=== PATIENT | female | born 1960 | race African-American/Black ===

== ENCOUNTER → 2020-01-31 15:29 | Outpatient (BNVA) | payer OTHER, SELFPAY | PROVIDERS: PCP Internal Medicine; Referring Provider Internal Medicine; Visit Provider Anesthesiology | DX: G89.4 Chronic pain syndrome (principal); M87.051 Idiopathic aseptic necrosis of right femur | CPT/HCPCS: 99213; Q3014 ==

== ENCOUNTER 2020-02-18 17:38 | Outpatient (REF) | payer OTHER, SELFPAY ==
--- NOTE | 2020-02-18 17:40 | MR_ITS ---
EXAMINATION: MR FEMUR WITHOUT CONTRAST, RIGHT CLINICAL INFORMATION: Pain. AVN. COMPARISON: Radiographs 01/23/2020 TECHNIQUE: MRI without contrast is performed on the proximal right femur. FINDINGS: There is chronic avascular necrosis of the superior femoral head with subchondral collapse resulting in flattening and articular surface incongruity most prominent anteriorly. The region of osteonecrosis measures approximately 3.1 x 2.7 cm with mild underlying bone marrow edema extending throughout the femoral head. There is cartilage loss along the superior femoral head and the anterior superior acetabulum. Small degenerative cysts of the anterior superior acetabular rim with osteophyte formation. No definite labral tear. Small osteophytes at the anterior and posterior femoral head and neck junction. There is a moderate joint effusion with mild diffuse synovitis. No muscle strain or tear. 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
== END 2020-02-18 17:39 | disposition home or self-care (01) ==
LOC: HO.MRI 17:38
PROVIDERS: PCP Internal Medicine; Visit Provider Anesthesiology
DX: M87.051 Idiopathic aseptic necrosis of right femur (principal)
CPT/HCPCS: 73718

== ENCOUNTER 2020-03-06 09:24 | Outpatient (REF) | payer OTHER, SELFPAY ==
--- NOTE | 2020-03-06 09:34 | XR_ITS ---
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 COMPARISON: X-rays of the right hip December 2019. MRI of the right hip January 2020. TECHNIQUE: AP view of the pelvis. FINDINGS: Right hip: Again noted is a geographic focus of lucency with this sclerotic margins in the apex of femoral head compatible with avascular necrosis. Slight flattening of the femoral head better appreciated on the prior x-ray the right hip. Joint space is normal. Remaining bones joints and soft tissues in the pelvis. No evidence of avascular necrosis in the left hip. XR/XR pelvis 1-2V IMPRESSION: Avascular necrosis of the right femoral head with slight subchondral collapse unchanged compared to prior x-rays and MRI.
== END 2020-03-06 09:25 | disposition home or self-care (01) ==
LOC: HO.HOSX 09:24
PROVIDERS: PCP Internal Medicine; Referring Provider Internal Medicine; Visit Provider Orthopaedic Surgery
DX: M87.051 Idiopathic aseptic necrosis of right femur (principal)
CPT/HCPCS: 72170; 99202

== ENCOUNTER → 2020-03-27 09:09 | Outpatient (BNVA) | payer OTHER, SELFPAY | PROVIDERS: PCP Internal Medicine; Visit Provider Orthopaedic Surgery | DX: Z76.89 Persons encountering health services in other specified circumstances (principal) ==

== ENCOUNTER 2020-07-15 07:41 | Outpatient (REF) | payer OTHER, SELFPAY ==
[2020-07-15 08:42] LABS: MANUAL DIFF FLAG NO
[2020-07-15 08:46] LABS: Basophils Percent Auto 0.4 % (0-2); Eosinophils Absolute Auto 0.1 X10*3/uL (0.0-0.4); Eosinophils Percent Auto 0.9 % (0-4); Hematocrit 37.4 % (37-47); Imm Gran Abs Auto 0.02 X10*3/uL (0.00-0.03); Imm Gran Pct Auto 0.2 % (0.0-0.4); Lymphocytes Percent Auto 35.3 % (20-40); Mean Corpuscular HGB Conc 32.1 g/dl (31.0-35.0); Mean Corpuscular Hemoglobin 29.1 pg (27.0-33.0); Mean Corpuscular Volume 90.6 fL (80-98); Mean Platelet Volume 10.2 fL (9.4-12.3); Monocytes Absolute Auto 0.6 X10*3/uL (0.1-1.2); Monocytes Percent Auto 7.3 % (2-11); Neutrophils Absolute Auto 4.8 X10*3/uL (2.0-8.3); Neutrophils Percent Auto 55.9 % (45-73); Platelet Count 359 X10*3/uL (160-400); Red Blood Count 4.13 X10*6/uL (4.20-5.50); Red Cell Distribution Width 12.7 % (11.0-16.0); White Blood Count 8.6 X10*3/uL (4.8-10.8)
[2020-07-15 09:22] LABS: Alanine Aminotransferase 11 U/L (0-31); Albumin Level 4.2 g/dL (3.5-5.0); Alkaline Phosphatase 63 U/L (39-117); Anion Gap 13 (12-20); Aspartate Amino Transferase 16 U/L (5-31); Blood Urea Nitrogen 21 mg/dL (9-16); Carbon Dioxide 24 mmol/L (22-29); Chloride 109 mmol/L (96-108); Cholesterol 216 mg/dL; Estimated Glomerular Filt Rate > 60; Glucose Fasting 81 mg/dL (60-99); HDL Cholesterol 62 mg/dL; LDL Cholesterol Calculated 135 mg/dl; Potassium 4.2 mmol/L (3.3-5.1); Sodium 142 mmol/L (135-145); Total Protein 7.1 g/dL (6.5-8.0); Triglycerides 96 mg/dL
[2020-07-15 09:37] LABS: TSH reflex Free T4 1.21 uIU/mL (0.32-4.0); Vitamin D 25-OH Total 46.3 ng/mL (>30)
== END 2020-07-15 07:42 | disposition home or self-care (01) ==
LOC: HO.LAB 07:41
PROVIDERS: Orthopaedic Surgery; PCP Internal Medicine; Visit Provider Internal Medicine
DX: Z01.812 Encounter for preprocedural laboratory examination (principal); F32.9 Major depressive disorder, single episode, unspecified; I10 Essential (primary) hypertension; M87.051 Idiopathic aseptic necrosis of right femur; Z78.0 Asymptomatic menopausal state
CPT/HCPCS: 36415; 80048; 80053; 80061; 82306; 84443; 85025

== ENCOUNTER → 2020-07-31 12:38 | Outpatient (BNVA) | payer OTHER, SELFPAY | PROVIDERS: PCP Internal Medicine; Visit Provider Physician Assistant | DX: M87.051 Idiopathic aseptic necrosis of right femur (principal) | CPT/HCPCS: 99212 ==

== ENCOUNTER 2020-08-05 07:53 | Inpatient (IN) | payer OTHER, SELFPAY ==
[2020-07-24 11:56] VITALS: BP 120/79; PULSE 92; RESP 20; O2SAT 98; BMI 27.5
--- NOTE | 2020-07-24 12:00 | P.CONAN_ITS ---
Documented by User: Georgina Mccainney 08/04/20 08:39 HPI - Anesthesia Eval Consult details Narrative: 60yo F for Right Hip Total Replacement PCP cleared at low risk PMFSH Active Problems Active Problems: All Active Problems (Updated 07/22/20 @ 13:21 by Tabitha Bee MD) Pre-operative examination (Acute) Menopause (Acute) HTN (hypertension) (Acute) Depression (Acute) History of colposcopy with cervical biopsy (Acute) ASCUS (atypical squamous cells of undetermined significance) on gynecologic Papanicolaou smear complicating , antepartum (Acute) Avascular necrosis of bone of right hip (Acute) Chronic pain syndrome (Acute) Avascular necrosis of bone of right hip (Acute) Past Medical History Medical History Arthritis ASCUS (atypical squamous cells of undetermined significance) on gynecologic Papanicolaou smear complicating , antepartum Avascular necrosis of bone of right hip Back pain Chronic pain syndrome Depression History of anxiety History of headache HTN (hypertension) Hx of Blancas's palsy Hx of osteopenia Menopause Pre-operative examination Family History Family History Maternal Aunt No problems noted. Maternal Grandmother Breast cancer Mother Colon cancer Family history of problems with anesthesia: No Surgical History Surgical History H/O colonoscopy History of colposcopy with cervical biopsy Hx of tubal ligation History of Problems with Anesthesia: No Social History Social History Are you a primary anesthesiologist and critical care to a significant other at home: No Do you presently have visiting nurse or other home services: No Alcohol intake: current Alcohol intake frequency: a few times a week Smoking Status: Former smoker Tobacco Type: Cigarette Years Smoked: 20 Smoking Quit Date: 2014 Use of substances other than those prescribed or required for medical reasons: Yes Substance Use Type: Marijuana Substance Use Type Other:: medical marijuana Substance Use Frequency: Weekly Have you been hit, kicked, punched, or otherwise hurt by someone within the past year? If so, by whom?: No Advance Directives Information Provided: No Recently lost weight without trying: No Current occupational status: employed Current occupation: senior receptionist, right-handed Narrative Narrative: No recent illness. Reports CP/SOB with anxiety attacks. [facility] ED w/u was negative for ACS. Activity limited to pain. Meds Allergies Allergy/AdvReac Type Severity Reaction Status Date / Time No Known Allergies Allergy Verified 07/22/20 13:00 Home Medications Medication Instructions Recorded Confirmed Last Taken Type hydrochlorothiazide 25 mg tablet 25 mg PO DAILY 02/22/20 07/24/20 Unknown History losartan 100 mg tablet 100 mg PO DAILY 02/22/20 07/24/20 Unknown History bupropion HCl 150 mg tablet,12 hr 150 mg PO BID 06/19/20 07/24/20 Unknown History sustained-release hydroxyzine HCl 25 mg tablet 25 mg PO QAM 06/19/20 07/24/20 Unknown History amlodipine 10 mg tablet 10 mg PO DAILY 07/22/20 07/24/20 Unknown History lorazepam 0.5 mg tablet 0.5 mg PO DAILY PRN 07/22/20 07/24/20 Unknown History Exam Exam Date and Time: July 24, 2020 1200 Pertinent Lab Results Pertinent Lab Results: Laboratory Tests 07/15/20 07/15/20 07:57 07:57 WBC 8.6 Hgb 12.0 Hct 37.4 Plt Count 359 Sodium 142 Potassium 4.2 Chloride 109 H Carbon Dioxide 24 BUN 21 H Creatinine 0.84 Lab Results 07/24/20 07/24/20 Range/Units 12:40 13:10 Nasal Screen MRSA (PCR) NEGATIVE (Negative) Nasal S. aureus Screen NEGATIVE (Negative) Nasal MRSA/S.aureus Interp SEE NOTE Blood Type O Positive Antibody Screen NEGATIVE Narrative Narrative: EKG 07/2020 Vent. Rate : 088 BPM Atrial Rate : 088 BPM P-R Int : 202 ms QRS Dur : 078 ms QT Int : 388 ms P-R-T Axes : 056 015 044 degrees QTc Int : 469 ms Normal sinus rhythm Possible Left atrial enlargement Borderline ECG No previous ECGs available Airway Mallampati Class: III TM Dist: >3cm Neck ROM: Full Loose/Missing/Broken Teeth: Yes (R lower molar crowned, 2 missing (32 and 22)) Heart: RRR Lungs: CTAB Assessment and Plan Assessment Anesthesia Assessment: Anesthesia Plan Discussed (GA vs Spinal, ? block) and Chart Reviewed Documented by User: Drew Retana MD 08/05/20 12:38 PMFSH Past Medical History Medical History Arthritis ASCUS (atypical squamous cells of undetermined significance) on gynecologic Papanicolaou smear complicating , antepartum Avascular necrosis of bone of right hip Back pain Chronic pain syndrome Depression History of anxiety History of headache HTN (hypertension) Hx of Blancas's palsy Hx of osteopenia Menopause Pre-operative examination Family History Family History Maternal Aunt No problems noted. Maternal Grandmother Breast cancer Mother Colon cancer Surgical History Surgical History H/O colonoscopy History of colposcopy with cervical biopsy Hx of tubal ligation Social History Social History Are you a primary anesthesiologist and critical care to a significant other at home: No Do you presently have visiting nurse or other home services: No Alcohol intake: current Alcohol intake frequency: a few times a week Smoking Status: Former smoker Tobacco Type: Cigarette Years Smoked: 20 Smoking Quit Date: 2014 Use of substances other than those prescribed or required for medical reasons: Yes Substance Use Type: Marijuana Substance Use Type Other:: medical marijuana Substance Use Frequency: Weekly Have you been hit, kicked, punched, or otherwise hurt by someone within the past year? If so, by whom?: No Advance Directives Information Provided: No Recently lost weight without trying: No Current occupational status: employed Current occupation: senior receptionist, right-handed Meds Allergies Allergy/AdvReac Type Severity Reaction Status Date / Time No Known Allergies Allergy Verified 07/22/20 13:00 Home Medications Medication Instructions Recorded Confirmed Last Taken Type hydrochlorothiazide 25 mg tablet 25 mg PO DAILY 02/22/20 07/24/20 Unknown History losartan 100 mg tablet 100 mg PO DAILY 02/22/20 07/24/20 Unknown History bupropion HCl 150 mg tablet,12 hr 150 mg PO BID 06/19/20 07/24/20 Unknown History sustained-release hydroxyzine HCl 25 mg tablet 25 mg PO QAM 06/19/20 07/24/20 Unknown History amlodipine 10 mg tablet 10 mg PO DAILY 07/22/20 07/24/20 Unknown History lorazepam 0.5 mg tablet 0.5 mg PO DAILY PRN 07/22/20 07/24/20 Unknown History Assessment and Plan Assessment Anesthesia Assessment: Anesthesia Plan Discussed and Chart Reviewed Final Anesthetic Review NPO: Yes ASA Class: III Final Preanesthetic Review: No Changes in Pt Med Stat, Meds/Allgs Chart Reviewed, Consent Obtained/Reviewed and Anes Risks/Benef Reviewed Patient Risk: Intermediate Procedure Risk: Intermediate Anesthetic Plan Anesthetic Plan: GA and Regional Block Disposition: Standard PACU Documented by User: Donna Smith 08/05/20 11:02 [facility] Past Medical History Medical History Arthritis ASCUS (atypical squamous cells of undetermined significance) on gynecologic Papanicolaou smear complicating , antepartum Avascular necrosis of bone of right hip Back pain Chronic pain syndrome Depression History of anxiety History of headache HTN (hypertension) Hx of Blancas's palsy Hx of osteopenia Menopause Pre-operative examination Family History Family History Maternal Aunt No problems noted. Maternal Grandmother Breast cancer Mother Colon cancer Surgical History Surgical History H/O colonoscopy History of colposcopy with cervical biopsy Hx of tubal ligation Social History Social History Are you a primary anesthesiologist and critical care to a significant other at home: No Do you presently have visiting nurse or other home services: No Alcohol intake: current Alcohol intake frequency: a few times a week Smoking Status: Former smoker Tobacco Type: Cigarette Years Smoked: 20 Smoking Quit Date: 2014 Use of substances other than those prescribed or required for medical reasons: Yes Substance Use Type: Marijuana Substance Use Type Other:: medical marijuana Substance Use Frequency: Weekly Have you been hit, kicked, punched, or otherwise hurt by someone within the past year? If so, by whom?: No Advance Directives Information Provided: No Recently lost weight without trying: No Current occupational status: employed Current occupation: senior receptionist, right-handed Meds Allergies Allergy/AdvReac Type Severity Reaction Status Date / Time No Known Allergies Allergy Verified 07/22/20 13:00 Home Medications Medication Instructions Recorded Confirmed Last Taken Type hydrochlorothiazide 25 mg tablet 25 mg PO DAILY 02/22/20 07/24/20 Unknown History losartan 100 mg tablet 100 mg PO DAILY 02/22/20 07/24/20 Unknown History bupropion HCl 150 mg tablet,12 hr 150 mg PO BID 06/19/20 07/24/20 Unknown History sustained-release hydroxyzine HCl 25 mg tablet 25 mg PO QAM 06/19/20 07/24/20 Unknown History amlodipine 10 mg tablet 10 mg PO DAILY 07/22/20 07/24/20 Unknown History lorazepam 0.5 mg tablet 0.5 mg PO DAILY PRN 07/22/20 07/24/20 Unknown History Exam Height,Weight and Vital Signs: Vital Signs Temp Pulse Resp BP Pulse Ox 08/05/20 08:10 97.2 F 84 18 133/91 H 98 Lab Results 07/24/20 07/24/20 08/05/20 Range/Units 12:40 13:10 07:59 Nasal Screen MRSA (PCR) NEGATIVE (Negative) Nasal S. aureus Screen NEGATIVE (Negative) Nasal MRSA/S.aureus Interp SEE NOTE COVID-19 (MICHELLE) Negative (Negative) COVID-19 Clin Com See Note Blood Type O Positive Antibody Screen NEGATIVE Airway Mallampati Class: II TM Dist: >3cm Neck ROM: Full Heart: RRR Lungs: CTAB Assessment and Plan Assessment Anesthesia Assessment: Anesthesia Plan Discussed and Chart Reviewed Final Anesthetic Review NPO: Yes ASA Class: II Final Preanesthetic Review: No Changes in Pt Med Stat, Meds/Allgs Chart Reviewed, Consent Obtained/Reviewed and Anes Risks/Benef Reviewed Patient Risk: Intermediate Procedure Risk: Intermediate Assessment/Block/Sedation in SS: Assess/Block/Sedation-SS Anesthetic Plan Anesthetic Plan: GA and Regional Block Disposition: Inp. Admit - Standard Bed
--- NOTE | 2020-07-24 13:10 | ECG_ITS ---
Test Reason : PREOP Blood Pressure : / mmHG Vent. Rate : 088 BPM Atrial Rate : 088 BPM P-R Int : 202 ms QRS Dur : 078 ms QT Int : 388 ms P-R-T Axes : 056 015 044 degrees QTc Int : 469 ms Normal sinus rhythm Possible Left atrial enlargement Borderline ECG No previous ECGs available Referred By: José Luis Noonan Electronically Signed By:TERESSA LIRIANO MD
[2020-07-24 15:05] LABS: MRSA Nasal PCR NEGATIVE (Negative); SA Nasal PCR NEGATIVE (Negative)
[2020-08-05] VITALS (15 sets, daily range): BP systolic 106–159; BP diastolic 64–92; PULSE 74–96; RESP 14–18; TEMP 36.2–36.6; O2SAT 85–100
--- NOTE | ~2020-08-05 | XR_ITS ---
EXAMINATION: XR PELVIS CLINICAL INFORMATION: Post right hip replacement COMPARISON: Previous pelvis x-ray February 2020 TECHNIQUE: AP view of the pelvis. FINDINGS: There is a new right hip replacement in satisfactory position. No fracture or dislocation is seen. Bones of the pelvis and left hip joint are normal. Soft tissues are unremarkable. XR/XR pelvis 1-2V IMPRESSION: Satisfactory appearance of right hip replacement.
[2020-08-05 08:42] LABS: COVID-19 Test Negative (Negative)
[2020-08-05] MEDS: oxyCODONE HCl ER 10 MG TAB.ER.12H PO ×2 (09:05→20:43)
[2020-08-05] MEDS: Gabapentin 600 MG TABLET PO (09:05)
[2020-08-05] MEDS: Lactated Ringers 1,000 ML 100 ML IVCONT (09:06)
--- NOTE | 2020-08-05 10:18 | MHC.SHP ---
Pre-Procedural Eval Section A The patient is an INPATIENT: No Changes since office visit: Yes Patient answered all questions; No Cold of Flu in the past 2 weeks, No New Medical Problems and No Changes in Medication The History & Physical has been completed within 30 days and I have reviewed it.: Yes Section B Chief Complaint: total Allergies: Allergies Allergy/AdvReac Type Severity Reaction Status Date / Time No Known Allergies Allergy Verified 07/22/20 13:00 Plan I have reviewed the history and physical and performed a pertinent physical examination on my patient. No changes have occurred unless specified.
--- NOTE | 2020-08-05 13:13 | PM.OP ---
Brief Operative Note Date of Service: 08/05/20 Pre-op diagnosis: right hip AVN Post-op diagnosis: same Procedure: Right ALEX Implants: Luly Trident2 48/38/ +0 MDM with 132deg #3 accolade 2 Surgeon: José Luis Noonan MD Anesthesia: GETA, regional and local Estimated blood loss (mL): 200 IV fluids (mL): 1,100 Pathology: other Condition: stable Disposition: PACU
--- NOTE | 2020-08-05 13:27 | P.OP_ITS ---
Operative Note Operative Note Date of Service: 08/05/20 Narrative: Pre-op diagnosis: right hip AVN Post-op diagnosis: same Procedure: Right ALEX Implants: [place] Trident2 48/38/26 +0 MDM with 132deg #3 accolade 2 Surgeon: José Luis Noonan MD Anesthesia: GETA, regional and local Estimated blood loss (mL): 200 IV fluids (mL): 1,100 Pathology: other Condition: stable Disposition: PACU Procedure in detail: Patient was brought into the operating room and placed in a right lateral decubitus position. All bony prominences were well padded and the limb was prepped and draped in standard sterile fashion. Time-out was called to identify proper site procedure proper surgeon IV antibiotics and 1 g of transaxemic acid was administered. I began by making a curvilinear incision over the posterolateral aspect of the greater trochanter. Dissection was taken down to the tensor fascia which was incised in line with the incision and a Charnley retractor was placed. Hip was internally rotated and the external rotators were identified. The vessels were cauterized and a full-thickness capsular/external rotator layer was developed starting just proximal to the piriformis. A dull Hohmann retractor was placed underneath the neck in the hip was dislocated. A neck cut was made 1 cm proximal to the lesser trochanter and the head and neck were removed and measured on the back table. There was a large area of necrotic osteocartiolagenous fragment in the superior head. Placed my anterior- posterior acetabular retractors and performed a labrectomy. I then sequentially reamed up to a size _47__ and impacted a _48 cup at approximately 45 degrees of inclination and 25 degrees of version. I then placed a temproary liner. I then removed my instrumentation and turned to the femur. I used cautery to identify the piriformis start site and used this as a starting point for my annamarieie cutter. I then used a Charnley awl to identify the canal and a curved curette to remove the lateral bone. I then sequentially broached in the patient's natural version to a size __3__and placed my trial implants. I took the hip through range of motion with a +0 head and I was satisfied with the length but elected to place an MDM liner given the thin poly of the 48 and some bordeline instability in adduction and IR > 50 deg. I therefore removed all instrumentation copiously irrigated placed my MDM liner and my #3 femur, 132 deg. I again took the hip through range of motion and was satisfied with the stability and length using a +0 head and so my final femoral head/MDM componenets were placed. I then irrigated for 3 minutes with iodine and placed 1 g of local TXA. I then performed a capsular closure with FiberWire, Bc's fascia with 0 Vicryl, subcuticular with 2-0 vicryl and skin with marcial. Patient was placed into a sterile dressing. Radiographs were obtained at the completion of the case and I was satisfied with the component position. Patient was extubated brought to the recovery room in stable condition.
[2020-08-05] MEDS: Ketorolac Tromethamine 15 MG/ML VIAL IVPUSH (14:04)
[2020-08-05] MEDS: hydrOXYzine HCL 25 MG TABLET PO (16:19)
[2020-08-05] MEDS: KCl 20 mEq in 5% Dex/0.45% Sod 20 MEQ/1,000 ML IV.SOLN 125 MEQ IVCONT (16:20)
[2020-08-05] MEDS: ceFAZolin Sodium/Dextrose,Iso 2 GM/50 ML PIGGYBACK IV (17:12)
--- NOTE | 2020-08-05 18:05 | P.CONIM_ITS ---
History of Present Illness Data of Consult Service Date: 08/05/20 Requesting physician: Tabitha Bee Primary Care Provider: Tabitha Bee MD [facility] Reason for consult: medical management 60 year female with with Avascular necrosis of right hip and underwent an elective hip replacment today. She is doing well post operatvely. Pain is controlled and has no other issues at this time. Other medical issues include HTN, depression, anxiety, Sciatica Review of Systems Review of Systems: Gen: no fever Resp: no sob, no cough CV: no chest, no BAILEY, no leg edema GI: No n/v, no abd pain Neuro: No confusion Yes all other systems are reviewed and are negative [facility] Medical History Arthritis ASCUS (atypical squamous cells of undetermined significance) on gynecologic Papanicolaou smear complicating , antepartum Avascular necrosis of bone of right hip Back pain Chronic pain syndrome Depression History of anxiety History of headache HTN (hypertension) Hx of Blancas's palsy Hx of osteopenia Menopause Pre-operative examination Family History Maternal Aunt No problems noted. Maternal Grandmother Breast cancer Mother Colon cancer Family history: reviewed and not pertinent Surgical History H/O colonoscopy History of colposcopy with cervical biopsy Hx of tubal ligation Social History Are you a primary senior resident care director to a significant other at home: No Do you presently have visiting nurse or other home services: No Alcohol intake: current Alcohol intake frequency: a few times a week Smoking Status: Former smoker Tobacco Type: Cigarette Years Smoked: 20 Smoking Quit Date: 2014 Use of substances other than those prescribed or required for medical reasons: Yes Substance Use Type: Marijuana Substance Use Type Other:: medical marijuana Substance Use Frequency: Weekly Currently Displaying Signs/Symptoms of Drug Intoxication Withdrawal: No Have you been hit, kicked, punched, or otherwise hurt by someone within the past year? If so, by whom?: No Advance Directives Information Provided: No Do you have thoughts of harming others: None Do you have a plan to hurt others: No Plan Recently lost weight without trying: No Current occupational status: employed Current occupation: repair technician, right-handed Meds Allergies Allergy/AdvReac Type Severity Reaction Status Date / Time No Known Allergies Allergy Verified 07/22/20 13:00 Active Medications: Current Medications Generic Name Dose Route Start Last Admin Trade Name Freq PRN Reason Stop Dose Admin Acetaminophen 650 mg 08/05/20 15:42 Acetaminophen 325 Mg Tablet PO Q6H PRN Pain, Mild (Pain Scale 1-3) Amlodipine Besylate 10 mg 08/06/20 09:00 Amlodipine Besylate 10 Mg Tablet PO DAILY COUNTS INCLUDE 234 BEDS AT THE [facility] Protocol Aspirin 325 mg 08/06/20 10:00 Aspirin 325 Mg Tablet PO BID COUNTS INCLUDE 234 BEDS AT THE [facility] Bupropion HCl 300 mg 08/06/20 09:00 Bupropion Hcl Xl 300 Mg Tab.Er.24h PO DAILY COUNTS INCLUDE 234 BEDS AT THE [facility] Celecoxib 200 mg 08/05/20 21:00 Celecoxib 200 Mg Capsule PO BID COUNTS INCLUDE 234 BEDS AT THE [facility] Docusate Sodium 100 mg 08/05/20 15:42 Docusate Sodium 100 Mg Capsule PO DAILY PRN Constipation Hydrochlorothiazide 25 mg 08/06/20 09:00 Hydrochlorothiazide 25 Mg Tablet PO DAILY COUNTS INCLUDE 234 BEDS AT THE [facility] Protocol Hydromorphone HCl 0.25 mg 08/05/20 15:42 Hydromorphone Hcl 0.5 Mg/0.5 Ml Syringe IVPUSH Q4H PRN Pain, Severe (Pain Scale 7-10) Hydroxyzine HCl 25 mg 08/05/20 15:42 08/05/20 16:19 Hydroxyzine Hcl 25 Mg Tablet PO 25 mg DAILY COLE Administration Potassium Chloride/Dextrose/Sod Cl 20 meq in 1,000 mls @ 125 mls/hr 08/05/20 15:42 08/05/20 16:20 IVCONT 125 mls/hr .Q8H COLE Administration Ketorolac Tromethamine 15 mg 08/05/20 18:17 Ketorolac Tromethamine 15 Mg/Ml Vial IVPUSH Q6H PRN Pain, Severe (Pain Scale 7-10) Lorazepam 0.5 mg 08/05/20 15:42 Lorazepam 0.5 Mg Tablet PO DAILY PRN Anxiety Losartan Potassium 100 mg 08/06/20 09:00 Losartan Potassium 50 Mg Tablet PO DAILY COUNTS INCLUDE 234 BEDS AT THE [facility] Protocol Magnesium Hydroxide 30 ml 08/05/20 15:42 Milk Of Magnesia 30 Ml Oral.Susp PO DAILY PRN Constipation Naloxone HCl 0.2 mg 08/05/20 15:42 Naloxone Hcl 0.4 Mg/Ml Vial IVPUSH Q2M PRN Excessive sedation or RR < 8 Ondansetron HCl 4 mg 08/05/20 15:42 Ondansetron Hcl 4 Mg/2 Ml Vial IVPUSH Q8H PRN Nausea and Vomiting Oxycodone HCl 5 mg 08/05/20 15:42 Oxycodone Hcl Immed Release 5 Mg Tablet PO Q4H PRN Pain, Moderate (Pain Scale 4-6 Oxycodone HCl 10 mg 08/05/20 21:00 Oxycodone Hcl Er 10 Mg Tab.Er.12h PO BID COLE Senna 17.2 mg 08/05/20 15:42 Sennosides 8.6 Mg Tablet PO BEDTIME PRN Constipation Sodium Chloride 3 ml 08/05/20 16:00 08/05/20 16:21 0.9 % Sodium Chloride Flush 3 Ml Syringe IVFLUSH Not Given QSHIFT COUNTS INCLUDE 234 BEDS AT THE [facility] Home Medications Medication Instructions Recorded Confirmed Last Taken Type hydrochlorothiazide 25 mg tablet 25 mg PO DAILY 02/22/20 07/24/20 Unknown History losartan 100 mg tablet 100 mg PO DAILY 02/22/20 07/24/20 Unknown History bupropion HCl 150 mg tablet,12 hr 150 mg PO BID 06/19/20 07/24/20 Unknown History sustained-release hydroxyzine HCl 25 mg tablet 25 mg PO QAM 06/19/20 07/24/20 Unknown History amlodipine 10 mg tablet 10 mg PO DAILY 07/22/20 07/24/20 Unknown History lorazepam 0.5 mg tablet 0.5 mg PO DAILY PRN 07/22/20 07/24/20 Unknown History Physical Exam Vital Signs and Narrative: Vital Signs: Last Vital Signs Temp 97.3 F 08/05/20 15:48 Pulse 82 08/05/20 15:48 Resp 15 08/05/20 15:48 BP 115/79 08/05/20 15:48 Pulse Ox 100 08/05/20 15:48 Body Mass Index 27.5 General: AO X 3, no acute distress Resp: CTA bilateral CVS: S1,S2,RRR GI: +BS, NT, no distention Skin: No rash, surgery site is dry clean and intact Neuro: motor grossly intact Psych: appropriate affect Results Labs Labs: Laboratory Results - last 24 hr 08/05/20 07:59 COVID-19 (MICHELLE) Negative COVID-19 Clin Com See Note Imaging Radiologist's Impressions: Impressions Pelvis X-Ray 08/05/20 11:42 IMPRESSION: Satisfactory appearance of right hip replacement. Assessment and Plan (1) HTN (hypertension): Qualifiers: Hypertension type: essential hypertension Qualified Code(s): I10 - Essential (primary) hypertension Status: Acute (2) Depression: Qualifiers: Depression Type: major depressive disorder Major depression recurrence: recurrent Active/Remission status: currently active Major depression episode severity: moderate Qualified Code(s): F33.1 - Major depressive disorder, recurrent, moderate Problem details: Sees therapist and psychiatrist at [facility] Status: Acute (3) Depression: Status: Acute 60/F with HNT, depression, anxiety who had hip replacement 08/05 d/t Avascular Necrosis Plan: Avascular Necrosis s/p hip replacment. Management by ortho HTN-BP is normal. Resume Norvasc, Losartan, and HCTZ tomorrow Anxiety Ativan, Atarax
[2020-08-05] MEDS: Celecoxib 200 MG CAPSULE PO (20:43)
[2020-08-05] MEDS: 0.9 % Sodium Chloride Flush 3 ML SYRINGE IVFLUSH (20:44)
[2020-08-06] VITALS (8 sets, daily range): BP systolic 100–135; BP diastolic 55–81; PULSE 85–97; RESP 16–20; TEMP 36.1–37; O2SAT 93–100
[2020-08-06] MEDS: HYDROmorphone HCl 0.5 MG/0.5 ML SYRINGE 0.25 MG IVPUSH ×2 (00:16→06:25)
[2020-08-06] MEDS: LORazepam 0.5 MG TABLET PO (00:17)
[2020-08-06] MEDS: Ketorolac Tromethamine 15 MG/ML VIAL IVPUSH ×3 (02:02→18:37)
[2020-08-06] MEDS: oxyCODONE HCl Immed Release 5 MG TABLET PO ×3 (02:03→13:32)
[2020-08-06] MEDS: Acetaminophen 325 MG TABLET 650 MG PO ×2 (02:03→13:31)
[2020-08-06] MEDS: KCl 20 mEq in 5% Dex/0.45% Sod 20 MEQ/1,000 ML IV.SOLN 125 MEQ IVCONT (05:30)
[2020-08-06 06:41] LABS: Hematocrit 29.7 % (37-47); Hemoglobin 9.6 g/dl (12.0-16.0)
--- NOTE | 2020-08-06 07:39 | P.PNOP_ITS ---
Subjective Subjective Date of Service: 08/06/20 Interval history: POD1 s/p right ALEX. Patient resting comfortably in bed. No overnight events. Pain is well managed. Physical Exam Vital Signs: Vital Signs: Last Vital Signs Temp 97.0 F 08/06/20 04:00 Pulse 90 08/06/20 04:00 Resp 16 08/06/20 04:00 BP 100/68 08/06/20 04:00 Pulse Ox 99 08/06/20 04:00 Body Mass Index 27.5 Const: General: cooperative, healthy appearing and no acute distress Resp: Effort & Inspection: normal respiratory effort and able to speak in complete sentences Cardio: Rate: regular rate Peripheral pulses: Peripheral pulses 2+ throughout GI: Palpation (GI): Soft to palpation Skin: Lesions: no lesions Rashes: no rashes Extrem: Other: Right hip no ecchymosis, redness, or drainage. Dressing is clean. dry, and intact. NVI Progress Note: A&P Assessment and plan (1) History of total right hip replacement: Status: Acute Assessment and Plan: Continue pain mgmnt Begin ASA for dvt ppx Continue PT for RT ALEX Dispo planning-Pending PT eval, pain mgmnt Fall Risk Details Current Medications: Current Medications Generic Name Dose Route Start Last Admin Trade Name Freq PRN Reason Stop Dose Admin Acetaminophen 650 mg 08/05/20 15:42 08/06/20 02:03 Acetaminophen 325 Mg Tablet PO 650 mg Q6H PRN Administration Pain, Mild (Pain Scale 1-3) Amlodipine Besylate 10 mg 08/06/20 09:00 Amlodipine Besylate 10 Mg Tablet PO DAILY FOR[facility]LY [facility], [facility]1983 Protocol Aspirin 325 mg 08/06/20 10:00 Aspirin 325 Mg Tablet PO BID COLE Bupropion HCl 300 mg 08/06/20 09:00 Bupropion Hcl Xl 300 Mg Tab.Er.24h PO DAILY COLE Celecoxib 200 mg 08/05/20 21:00 08/05/20 20:43 Celecoxib 200 Mg Capsule PO 200 mg BID COLE Administration Docusate Sodium 100 mg 08/05/20 15:42 Docusate Sodium 100 Mg Capsule PO DAILY PRN Constipation Hydrochlorothiazide 25 mg 08/06/20 09:00 Hydrochlorothiazide 25 Mg Tablet PO DAILY FOR[facility], [facility]1983 Protocol Hydromorphone HCl 0.25 mg 08/05/20 15:42 08/06/20 06:25 Hydromorphone Hcl 0.5 Mg/0.5 Ml Syringe IVPUSH 0.25 mg Q4H PRN Administration Pain, Severe (Pain Scale 7-10) Hydroxyzine HCl 25 mg 08/05/20 15:42 08/05/20 16:19 Hydroxyzine Hcl 25 Mg Tablet PO 25 mg DAILY COLE Administration Potassium Chloride/Dextrose/Sod Cl 20 meq in 1,000 mls @ 125 mls/hr 08/05/20 15:42 08/06/20 05:30 IVCONT 125 mls/hr .Q8H COLE Administration Ketorolac Tromethamine 15 mg 08/05/20 18:17 08/06/20 02:02 Ketorolac Tromethamine 15 Mg/Ml Vial IVPUSH 15 mg Q6H PRN Administration Pain, Severe (Pain Scale 7-10) Lorazepam 0.5 mg 08/05/20 15:42 08/06/20 00:17 Lorazepam 0.5 Mg Tablet PO 0.5 mg DAILY PRN Administration Anxiety Losartan Potassium 100 mg 08/06/20 09:00 Losartan Potassium 50 Mg Tablet PO DAILY FOR[facility] Protocol Magnesium Hydroxide 30 ml 08/05/20 15:42 Milk Of Magnesia 30 Ml Oral.Susp PO DAILY PRN Constipation Naloxone HCl 0.2 mg 08/05/20 15:42 Naloxone Hcl 0.4 Mg/Ml Vial IVPUSH Q2M PRN Excessive sedation or RR < 8 Ondansetron HCl 4 mg 08/05/20 15:42 Ondansetron Hcl 4 Mg/2 Ml Vial IVPUSH Q8H PRN Nausea and Vomiting Oxycodone HCl 5 mg 08/05/20 15:42 08/06/20 02:03 Oxycodone Hcl Immed Release 5 Mg Tablet PO 5 mg Q4H PRN Administration Pain, Moderate (Pain Scale 4-6 Oxycodone HCl 10 mg 08/05/20 21:00 08/05/20 20:43 Oxycodone Hcl Er 10 Mg Tab.Er.12h PO 10 mg BID COLE Administration Senna 17.2 mg 08/05/20 15:42 Sennosides 8.6 Mg Tablet PO BEDTIME PRN Constipation Sodium Chloride 3 ml 08/05/20 16:00 08/05/20 20:44 0.9 % Sodium Chloride Flush 3 Ml Syringe IVFLUSH 3 ml QSHIFT COLE Administration Time Spent With Patient Time: Total time spent is greater than 50% in coordination of care (as documented) at patient's floor/unit and/or counseling patient: Time with patient: less than 15 minutes
[2020-08-06] MEDS: amLODIPine Besylate 10 MG TABLET PO (08:47)
[2020-08-06] MEDS: Aspirin 325 MG TABLET PO ×2 (08:48→20:31)
[2020-08-06] MEDS: oxyCODONE HCl ER 10 MG TAB.ER.12H PO ×2 (08:48→20:32)
[2020-08-06] MEDS: hydrOXYzine HCL 25 MG TABLET PO (08:48)
[2020-08-06] MEDS: Losartan Potassium 50 MG TABLET 100 MG PO (08:49)
[2020-08-06] MEDS: buPROPion HCl XL 300 MG TAB.ER.24H PO (08:49)
[2020-08-06] MEDS: Celecoxib 200 MG CAPSULE PO ×2 (08:49→20:31)
[2020-08-06] MEDS: hydroCHLOROthiazide 25 MG TABLET PO (08:49)
--- NOTE | 2020-08-06 09:57 | P.PNIM_ITS ---
Subjective Subjective Date of Service: 08/06/20 Interval History: f/u med consult, s/p hip replacements for avascular necrosis. Pain is controlled. In sleep well due to disturbance from neighbor. Review of Systems Gen: no fever Resp: no sob, no cough CV: no chest, no BAILEY, no leg edema GI: No n/v, no abd pain Neuro: No confusion MSK: some hip pain Physical Exam Vital Signs: Vital Signs: Last Vital Signs Temp 97.5 F 08/06/20 07:38 Pulse 97 08/06/20 08:49 Resp 18 08/06/20 07:38 BP 135/81 08/06/20 08:49 Pulse Ox 96 08/06/20 07:38 Body Mass Index 27.5 General: AO X 3, no acute distress Resp: normal resp effort CVS: S1,S2,RRR GI: +BS, NT, no distention Skin: No rash Neuro: motor grossly intact Psych: appropriate affect Objective Data Current Medications Generic Name Dose Route Start Last Admin Trade Name Freq PRN Reason Stop Dose Admin Acetaminophen 650 mg 08/05/20 15:42 08/06/20 02:03 Acetaminophen 325 Mg Tablet PO 650 mg Q6H PRN Administration Pain, Mild (Pain Scale 1-3) Amlodipine Besylate 10 mg 08/06/20 09:00 08/06/20 08:47 Amlodipine Besylate 10 Mg Tablet PO 10 mg DAILY COLE Administration Protocol Aspirin 325 mg 08/06/20 10:00 08/06/20 08:48 Aspirin 325 Mg Tablet PO 325 mg BID COLE Administration Bupropion HCl 300 mg 08/06/20 09:00 08/06/20 08:49 Bupropion Hcl Xl 300 Mg Tab.Er.24h PO 300 mg DAILY COLE Administration Celecoxib 200 mg 08/05/20 21:00 08/06/20 08:49 Celecoxib 200 Mg Capsule PO 200 mg BID COLE Administration Docusate Sodium 100 mg 08/05/20 15:42 Docusate Sodium 100 Mg Capsule PO DAILY PRN Constipation Hydrochlorothiazide 25 mg 08/06/20 09:00 08/06/20 08:49 Hydrochlorothiazide 25 Mg Tablet PO 25 mg DAILY COLE Administration Protocol Hydromorphone HCl 0.25 mg 08/05/20 15:42 08/06/20 06:25 Hydromorphone Hcl 0.5 Mg/0.5 Ml Syringe IVPUSH 0.25 mg Q4H PRN Administration Pain, Severe (Pain Scale 7-10) Hydroxyzine HCl 25 mg 08/05/20 15:42 08/06/20 08:48 Hydroxyzine Hcl 25 Mg Tablet PO 25 mg DAILY COLE Administration Ketorolac Tromethamine 15 mg 08/05/20 18:17 08/06/20 02:02 Ketorolac Tromethamine 15 Mg/Ml Vial IVPUSH 15 mg Q6H PRN Administration Pain, Severe (Pain Scale 7-10) Lorazepam 0.5 mg 08/05/20 15:42 08/06/20 00:17 Lorazepam 0.5 Mg Tablet PO 0.5 mg DAILY PRN Administration Anxiety Losartan Potassium 100 mg 08/06/20 09:00 08/06/20 08:49 Losartan Potassium 50 Mg Tablet PO 100 mg DAILY COLE Administration Protocol Magnesium Hydroxide 30 ml 08/05/20 15:42 Milk Of Magnesia 30 Ml Oral.Susp PO DAILY PRN Constipation Naloxone HCl 0.2 mg 08/05/20 15:42 Naloxone Hcl 0.4 Mg/Ml Vial IVPUSH Q2M PRN Excessive sedation or RR < 8 Ondansetron HCl 4 mg 08/05/20 15:42 Ondansetron Hcl 4 Mg/2 Ml Vial IVPUSH Q8H PRN Nausea and Vomiting Oxycodone HCl 5 mg 08/05/20 15:42 08/06/20 08:49 Oxycodone Hcl Immed Release 5 Mg Tablet PO 5 mg Q4H PRN Administration Pain, Moderate (Pain Scale 4-6 Oxycodone HCl 10 mg 08/05/20 21:00 08/06/20 08:48 Oxycodone Hcl Er 10 Mg Tab.Er.12h PO 10 mg BID COLE Administration Senna 17.2 mg 08/05/20 15:42 Sennosides 8.6 Mg Tablet PO BEDTIME PRN Constipation Sodium Chloride 3 ml 08/05/20 16:00 08/06/20 07:49 0.9 % Sodium Chloride Flush 3 Ml Syringe IVFLUSH Not Given QSHIFT [facility] Labs CBC & Chem 7: 08/06/20 06:04 Assessment and Plan (1) HTN (hypertension): Status: Acute (2) Depression: Problem details: Sees therapist and psychiatrist at [facility] Status: Acute Assessment and Plan: 60/F with HNT, depression, anxiety who had hip replacement 08/05 d/t Avascular Necrosis Plan: Avascular Necrosis s/p hip replacment. management by ortho, PT HTN-BP is normal. Continue Norvasc, Losartan, and HCTZ Anxiety Ativan, Atarax Anemia--Keep eye on it, no indication for transfusion at this time
--- NOTE | 2020-08-06 10:00 | MHC.CM.PN ---
Addendum entered by Karla Ennis 08/06/20 10:30: Additional Information- Pt reports having recent anxiety and depression. She sees a therapist 2x weekly and is followed by a [facility] in the community. Offered pt services while at [facility], she denied the need. Original Note: This group underwriter meet with patient. A&O, able to answer questions appropriately. IMM provided and reviewed with pt. Pt lives with daughter who will provide transportation @ [place]. Physical Therapy recommending home w/ services. VNA agencies provided to pt, will follow-up this afternoon for choices. CM will continue to monitor.
[2020-08-06] MEDS: 0.9 % Sodium Chloride Flush 3 ML SYRINGE IVFLUSH ×2 (14:40→20:34)
--- NOTE | 2020-08-06 15:15 | HO.POSTANES ---
Post Anesthesia Evaluation Post Anesthesia Evaluation Vital Signs: Vital Signs Temp Pulse Resp BP Pulse Ox 08/06/20 11:21 98.6 F 90 17 104/56 L 97 08/06/20 08:49 97 135/81 08/06/20 08:47 97 133/81 08/06/20 07:38 97.5 F 85 18 106/64 96 08/06/20 04:00 97.0 F 90 16 100/68 99 Anesthesia: Nerve Block and General Mental Status: Awake Pain Control: Satisfactory Nausea/Vomiting: None Hydration: Adequate Anesthesia-Related Issues: No Anes. Related Issues
[2020-08-07] VITALS: BP 96/67; PULSE 95; RESP 16; TEMP 37.2; O2SAT 96
[2020-08-07] MEDS: HYDROmorphone HCl 0.5 MG/0.5 ML SYRINGE 0.25 MG IVPUSH ×2 (01:55→06:49)
[2020-08-07 03:26] VITALS: BP 99/59; PULSE 88; RESP 16; TEMP 36.2; O2SAT 100
[2020-08-07 08:00] VITALS: BP 142/83; PULSE 112; RESP 18; TEMP 36.1; O2SAT 98
[2020-08-07 08:18] LABS: MANUAL DIFF FLAG NO
--- NOTE | 2020-08-07 08:25 | P.PNOP_ITS ---
Subjective Subjective Date of Service: 08/07/20 Interval history: POD2 s/p right ALEX with Dr. Noonan. Tiffani is up walking with P.T. in the hallway this morning. She states that her pain is well managed. No additional complaints. Physical Exam Vital Signs: Vital Signs: Last Vital Signs Temp 97.0 F 08/07/20 08:00 Pulse 112 H 08/07/20 08:00 Resp 18 08/07/20 08:00 BP 142/83 H 08/07/20 08:00 Pulse Ox 98 08/07/20 08:00 Body Mass Index 27.5 Const: General: cooperative, healthy appearing and no acute distress Resp: Effort & Inspection: normal respiratory effort and able to speak in complete sentences Cardio: Rate: regular rate Peripheral pulses: Peripheral pulses 2+ throughout GI: Palpation (GI): Soft to palpation Skin: Lesions: no lesions Rashes: no rashes Extrem: Other: Right hip no ecchymosis, redness, or drainage. Aquacel is clean , dry, and intact. NVI. Progress Note: A&P Assessment and plan (1) History of total right hip replacement: Status: Acute Assessment and Plan: Continue pain mgmnt Continue ASA for dvt ppx Continue PT for right ALEX Dispo planning-Pending PT eval, pain mgmnt Fall Risk Details Current Medications: Current Medications Generic Name Dose Route Start Last Admin Trade Name Freq PRN Reason Stop Dose Admin Acetaminophen 650 mg 08/05/20 15:42 08/06/20 13:31 Acetaminophen 325 Mg Tablet PO 650 mg Q6H PRN Administration Pain, Mild (Pain Scale 1-3) Amlodipine Besylate 10 mg 08/06/20 09:00 08/06/20 08:47 Amlodipine Besylate 10 Mg Tablet PO 10 mg DAILY COLE Administration Protocol Aspirin 325 mg 08/06/20 10:00 08/06/20 20:31 Aspirin 325 Mg Tablet PO 325 mg BID COLE Administration Bupropion HCl 300 mg 08/06/20 09:00 08/06/20 08:49 Bupropion Hcl Xl 300 Mg Tab.Er.24h PO 300 mg DAILY COLE Administration Celecoxib 200 mg 08/05/20 21:00 08/06/20 20:31 Celecoxib 200 Mg Capsule PO 200 mg BID COLE Administration Docusate Sodium 100 mg 08/05/20 15:42 Docusate Sodium 100 Mg Capsule PO DAILY PRN Constipation Hydrochlorothiazide 25 mg 08/06/20 09:00 08/06/20 08:49 Hydrochlorothiazide 25 Mg Tablet PO 25 mg DAILY COLE Administration Protocol Hydromorphone HCl 0.25 mg 08/05/20 15:42 08/07/20 06:49 Hydromorphone Hcl 0.5 Mg/0.5 Ml Syringe IVPUSH 0.25 mg Q4H PRN Administration Pain, Severe (Pain Scale 7-10) Hydroxyzine HCl 25 mg 08/05/20 15:42 08/06/20 08:48 Hydroxyzine Hcl 25 Mg Tablet PO 25 mg DAILY COLE Administration Ketorolac Tromethamine 15 mg 08/05/20 18:17 08/06/20 18:37 Ketorolac Tromethamine 15 Mg/Ml Vial IVPUSH 15 mg Q6H PRN Administration Pain, Severe (Pain Scale 7-10) Lorazepam 0.5 mg 08/05/20 15:42 08/06/20 00:17 Lorazepam 0.5 Mg Tablet PO 0.5 mg DAILY PRN Administration Anxiety Losartan Potassium 100 mg 08/06/20 09:00 08/06/20 08:49 Losartan Potassium 50 Mg Tablet PO 100 mg DAILY COLE Administration Protocol Magnesium Hydroxide 30 ml 08/05/20 15:42 Milk Of Magnesia 30 Ml Oral.Susp PO DAILY PRN Constipation Naloxone HCl 0.2 mg 08/05/20 15:42 Naloxone Hcl 0.4 Mg/Ml Vial IVPUSH Q2M PRN Excessive sedation or RR < 8 Ondansetron HCl 4 mg 08/05/20 15:42 Ondansetron Hcl 4 Mg/2 Ml Vial IVPUSH Q8H PRN Nausea and Vomiting Oxycodone HCl 5 mg 08/05/20 15:42 08/06/20 13:32 Oxycodone Hcl Immed Release 5 Mg Tablet PO 5 mg Q4H PRN Administration Pain, Moderate (Pain Scale 4-6 Oxycodone HCl 10 mg 08/05/20 21:00 08/06/20 20:32 Oxycodone Hcl Er 10 Mg Tab.Er.12h PO 10 mg BID COLE Administration Senna 17.2 mg 08/05/20 15:42 Sennosides 8.6 Mg Tablet PO BEDTIME PRN Constipation Sodium Chloride 3 ml 08/05/20 16:00 08/06/20 20:34 0.9 % Sodium Chloride Flush 3 Ml Syringe IVFLUSH 3 ml QSHIFT COLE Administration Time Spent With Patient Time: Total time spent is greater than 50% in coordination of care (as documented) at patient's floor/unit and/or counseling patient: Time with patient: less than 15 minutes
[2020-08-07 08:33] LABS: Basophils Percent Auto 0.3 % (0-2); Eosinophils Absolute Auto 0.2 X10*3/uL (0.0-0.4); Eosinophils Percent Auto 1.4 % (0-4); Hematocrit 30.7 % (37-47); Hemoglobin 9.8 g/dl (12.0-16.0); Imm Gran Abs Auto 0.04 X10*3/uL (0.00-0.03); Imm Gran Pct Auto 0.3 % (0.0-0.4); Lymphocytes Absolute Auto 3.8 X10*3/uL (1.2-4.9); Lymphocytes Percent Auto 27.2 % (20-40); Mean Corpuscular HGB Conc 31.9 g/dl (31.0-35.0); Mean Corpuscular Hemoglobin 29.3 pg (27.0-33.0); Mean Corpuscular Volume 91.9 fL (80-98); Monocytes Absolute Auto 1.2 X10*3/uL (0.1-1.2); Monocytes Percent Auto 8.4 % (2-11); Neutrophils Absolute Auto 8.7 X10*3/uL (2.0-8.3); Neutrophils Percent Auto 62.4 % (45-73); Platelet Count 298 X10*3/uL (160-400); Red Blood Count 3.34 X10*6/uL (4.20-5.50); Red Cell Distribution Width 13.2 % (11.0-16.0); White Blood Count 13.9 X10*3/uL (4.8-10.8)
[2020-08-07 08:50] LABS: Anion Gap 13 (12-20); Blood Urea Nitrogen 13 mg/dL (9-16); Calcium 8.9 mg/dL (8.4-10.2); Carbon Dioxide 26 mmol/L (22-29); Chloride 102 mmol/L (96-108); Creatinine Clr Calc Pharmacy 80.9; Estimated Glomerular Filt Rate > 60; Glucose Random 96 mg/dL (60-115); Potassium 3.9 mmol/L (3.3-5.1); Sodium 137 mmol/L (135-145)
--- NOTE | 2020-08-07 08:59 | P.DS_ITS ---
DS: Providers Provider Date of Service: 08/07/20 Date of admission: 08/05/20 07:53 Primary care physician: Tabitha Bee MD Consults: 08/05/20 15:42 Consult to Hospitalist Routine Consulting Provider: Hospitalist Reason For Exam: post ALEX. Blood pressure management DS: Diagnosis Discharge Diagnosis (1) History of total right hip replacement: Status: Acute Problem details: Ms. Santo is a 60 yo female who presented to the office with ongoing right hip pain. She was found to have OA of the right hip and had failed all conservative treatment. She continued to have difficulty with ambulation and daily activities; therefore she consented to move forward with Right total hip arthroplasty. DS: Medications Discharge Medications Home Medications: Home Medications Medication Instructions Recorded Confirmed hydrochlorothiazide 25 mg tablet 25 mg PO DAILY 02/22/20 07/24/20 losartan 100 mg tablet 100 mg PO DAILY 02/22/20 07/24/20 bupropion HCl 150 mg tablet,12 hr 150 mg PO BID 06/19/20 07/24/20 sustained-release hydroxyzine HCl 25 mg tablet 25 mg PO QAM 06/19/20 07/24/20 amlodipine 10 mg tablet 10 mg PO DAILY 07/22/20 07/24/20 lorazepam 0.5 mg tablet 0.5 mg PO DAILY PRN 07/22/20 07/24/20 Previous Rx's Medication Instructions Recorded lidocaine 5 % topical patch 1 patch TOPICAL DAILY #30 ea 06/19/20 walker #1 ea 08/06/20 acetaminophen 650 mg PO Q6H PRN 30 Days #60 tab 08/07/20 aspirin 325 mg PO BID 42 Days #84 tab 08/07/20 celecoxib 200 mg PO BID 30 Days #60 cap 08/07/20 docusate sodium 100 mg PO BID PRN 30 Days cap 08/07/20 oxycodone 5 mg PO Q4H PRN 7 Days #42 tab 08/07/20 DS: Summary Hospital Course Hospital Course: The patient underwent a successful right total hip arthroplasty, they were transferred to PACU and then to the floor to recover. During their stay, their vitals were stable, afebrile at 97.1. Labs were unremarkable, H/H 9.8/30.7. POD 1 they were started on Aspirin 325mg po bid for DVT ppx, they also received Physical Therapy services twice a day. Prior to discharge, their dressing was changed, incision clean dry and intact, Aquacel dressing applied and the plan was to be discharged home with VNA services. Time Spent with Patient Time attestation: Total time spent providing and/or coordinating discharge services: Discharge coordination time: Less than 30 minutes Physical Exam Vital Signs: Vital Signs: Last Vital Signs Temp 97.0 F 08/07/20 08:00 Pulse 112 H 08/07/20 08:00 Resp 18 08/07/20 08:00 BP 142/83 H 08/07/20 08:00 Pulse Ox 98 08/07/20 08:00 Body Mass Index 27.5 Const: General: cooperative, healthy appearing and no acute distress Resp: Effort & Inspection: normal respiratory effort and able to speak in complete sentences Cardio: Rate: regular rate Peripheral pulses: Peripheral pulses 2+ throughout GI: Palpation (GI): Soft to palpation Skin: Lesions: no lesions Rashes: no rashes Extrem: Other: Right hip no ecchymosis, redness, or drainage. Aquacel dressing is clean dry and intact. NVI. DS: Data Data Completed and Pending Pending studies at discharge: Pending at discharge 08/05/20 12:45 Surgical [PTH] Routine Labs on day of discharge: Laboratory Results - last 24 hr 08/07/20 08/07/20 07:53 07:53 WBC 13.9 H RBC 3.34 L Hgb 9.8 L Hct 30.7 L MCV 91.9 MCH 29.3 MCHC 31.9 RDW 13.2 Plt Count 298 MPV 10.0 Immature Gran % (Auto) 0.3 Neut % (Auto) 62.4 Lymph % (Auto) 27.2 Letcher % (Auto) 8.4 Eos % (Auto) 1.4 Baso % (Auto) 0.3 Lymph # (Auto) 3.8 Letcher # (Auto) 1.2 Eos # (Auto) 0.2 Baso # (Auto) 0.0 Abs Immat Gran (auto) 0.04 H Absolute Neuts (auto) 8.7 H Absolute Nucleated RBC 0.000 Nucleated RBC % (auto) 0.0 Sodium 137 Potassium 3.9 Chloride 102 Carbon Dioxide 26 Anion Gap 13 BUN 13 Creatinine 0.74 Estim Creat Clear Calc 80.9 Estimated GFR > 60 Random Glucose 96 Calcium 8.9 Discharge Plan Discharge Patient Disposition: Home Health Service Discharge Diagnosis: s/p right ALEX Referrals: Sly MOHAN [Outside] - 1 Day (CUSTODIAL AND HOME PHYSICAL THERAPY PLEASE CALL ABOVE NUMBER IF YOU HAVE NOT HEARD FROM NA BY ELVIS ON 08/08/20) José Luis Noonan MD [Physician] - 1 Week Deon Wolf PA-C [Physician Animal Rehabilitator] - 2 Weeks (08/21/20 at 2:15pm) Discharge Medications: New acetaminophen 325 mg Tablet 650 mg PO Q6H PRN (Reason: Pain, Mild (Pain Scale 1-3)) 30 Days Qty: 60 RF: 0 celecoxib 200 mg Capsule 200 mg PO BID 30 Days Qty: 60 RF: 0 aspirin 325 mg Tablet 325 mg PO BID 42 Days Qty: 84 RF: 0 docusate sodium 100 mg Capsule 100 mg PO BID PRN (Reason: Constipation) 30 Days RF: 0 oxycodone 5 mg Tablet 5 mg PO Q4H PRN (Reason: Pain, Moderate (Pain Scale 4-6) 7 Days Qty: 42 RF: 0 Continued (DME) walker Misc See Rx Instructions .MEDSUPPLY Qty: 1 RF: 0 losartan 100 mg tablet 100 mg PO DAILY RF: 0 hydrochlorothiazide 25 mg tablet 25 mg PO DAILY RF: 0 bupropion HCl 150 mg tablet sustained-release 12 hr 150 mg PO BID RF: 0 hydroxyzine HCl 25 mg tablet 25 mg PO QAM RF: 0 lidocaine 5 % adhesive patch,medicated 1 patch topical DAILY Qty: 30 RF: 0 lorazepam 0.5 mg tablet 0.5 mg PO DAILY PRN (Reason: Anxiety) RF: 0 amlodipine 10 mg tablet 10 mg PO DAILY RF: 0 Discontinued aspirin 81 mg tablet,delayed release (DR/EC) 81 mg PO DAILY Qty: 90 RF: 1 Discharge Orders: Discharge Order (Routine); Ordered 08/07/20 Ordered By: Ellen Lincoln Diet: regular diet Activity on Discharge: Use cane or walker Stand Alone Forms: Patient Portal Discharge page Care Plan Goals: restroe fxn to right hip Health Concerns: None Plan of Treatment: Physical Therapy for total hip arthroplasty: posterior precautions, gait training, ROM, strength Limit stair climbing No showering, no tub bath-keep dressing clean, dry and intact No driving x6 weeks Continue Lovenox tabs once a day x [address] [facility] Orthopedics in 2 weeks Assessment: Physical Therapy for total hip arthroplasty: posterior precautions, gait training, ROM, strength Limit stair climbing No showering, no tub bath-keep dressing clean, dry and intact No driving x6 weeks Continue Lovenox tabs once a day x [address] [facility] Orthopedics in 2 weeks
--- NOTE | 2020-08-07 09:11 | P.F2F_ITS ---
Service Date Service Date: 08/07/20 Encounter Date of encounter: 08/07/20 Encounter: Pt. is considered homebound due to recent surgery. Unable to drive, poor balance, poor gait mechanics. Reasons for Services Reason for physical therapy: home safety and mobility, therapeutic exercises, restore joint function, gait/transfer training and ADL training Reason for occupational therapy: home safety and mobility, therapeutic exercises, restore joint function, gait/transfer training and ADL training Homebound: Leaving the home is medically contraindicated at this time without the asist of a device and/or another person due th the listed conditions above and below. Reason homebound: unsteady gait / fall risk, leg weakness, pain with ambulation, pain with transfers, poor balance / fall risk and unable to drive Homebound supporting statement: Pt. is considered homebound due to recent surgery. Unable to drive, poor balance, poor gait mechanics. Certification: Based on the above findings, I certify that this patient is confined to the home and needs intermittent senior care care, physical therapy and/or speech therapy, or continues to need occupational therapy. The patient is under my care, and I have initiated the establishment of the plan of care. The patient will be followed by a physician who will periodically review the plan of care.
[2020-08-07] MEDS: 0.9 % Sodium Chloride Flush 3 ML SYRINGE IVFLUSH (09:13)
[2020-08-07] MEDS: Aspirin 325 MG TABLET PO (09:13)
[2020-08-07 09:14] VITALS: BP 142/83; PULSE 112
[2020-08-07] MEDS: hydrOXYzine HCL 25 MG TABLET PO (09:14)
[2020-08-07] MEDS: oxyCODONE HCl ER 10 MG TAB.ER.12H PO (09:14)
[2020-08-07] MEDS: amLODIPine Besylate 10 MG TABLET PO (09:14)
[2020-08-07] MEDS: buPROPion HCl XL 300 MG TAB.ER.24H PO (09:14)
[2020-08-07] MEDS: Celecoxib 200 MG CAPSULE PO (09:14)
[2020-08-07] MEDS: Losartan Potassium 50 MG TABLET 100 MG PO (09:14)
[2020-08-07] MEDS: hydroCHLOROthiazide 25 MG TABLET PO (09:14)
--- NOTE | 2020-08-07 10:14 | HO.PM.IMPN ---
Subjective Subjective Date of Service: 08/07/20 Interval History: f/u med consult, s/p hip replacements for avascular necrosis. Pain is controlled. happy to be going home Review of Systems Gen: no fever Resp: no sob, no cough CV: no chest, no BAILEY, no leg edema GI: No n/v, no abd pain Neuro: No confusion MSK: some hip pain Physical Exam Vital Signs: Vital Signs: Last Vital Signs Temp 97.0 F 08/07/20 08:00 Pulse 112 H 08/07/20 09:14 Resp 18 08/07/20 08:00 BP 142/83 H 08/07/20 09:14 Pulse Ox 98 08/07/20 08:00 Body Mass Index 27.5 General: AO X 3, no acute distress Resp: normal speech, no distress GI: no distention, Skin: No rash, no wound issues Neuro: motor grossly intact Psych: appropriate affect Objective Data Current Medications Generic Name Dose Route Start Last Admin Trade Name Freq PRN Reason Stop Dose Admin Acetaminophen 650 mg 08/05/20 15:42 08/06/20 13:31 Acetaminophen 325 Mg Tablet PO 650 mg Q6H PRN Administration Pain, Mild (Pain Scale 1-3) Amlodipine Besylate 10 mg 08/06/20 09:00 08/07/20 09:14 Amlodipine Besylate 10 Mg Tablet PO 10 mg DAILY COLE Administration Protocol Aspirin 325 mg 08/06/20 10:00 08/07/20 09:13 Aspirin 325 Mg Tablet PO 325 mg BID COLE Administration Bupropion HCl 300 mg 08/06/20 09:00 08/07/20 09:14 Bupropion Hcl Xl 300 Mg Tab.Er.24h PO 300 mg DAILY COLE Administration Celecoxib 200 mg 08/05/20 21:00 08/07/20 09:14 Celecoxib 200 Mg Capsule PO 200 mg BID COLE Administration Docusate Sodium 100 mg 08/05/20 15:42 Docusate Sodium 100 Mg Capsule PO DAILY PRN Constipation Hydrochlorothiazide 25 mg 08/06/20 09:00 08/07/20 09:14 Hydrochlorothiazide 25 Mg Tablet PO 25 mg DAILY COLE Administration Protocol Hydromorphone HCl 0.25 mg 08/05/20 15:42 08/07/20 06:49 Hydromorphone Hcl 0.5 Mg/0.5 Ml Syringe IVPUSH 0.25 mg Q4H PRN Administration Pain, Severe (Pain Scale 7-10) Hydroxyzine HCl 25 mg 08/05/20 15:42 08/07/20 09:14 Hydroxyzine Hcl 25 Mg Tablet PO 25 mg DAILY COLE Administration Ketorolac Tromethamine 15 mg 08/05/20 18:17 08/06/20 18:37 Ketorolac Tromethamine 15 Mg/Ml Vial IVPUSH 15 mg Q6H PRN Administration Pain, Severe (Pain Scale 7-10) Lorazepam 0.5 mg 08/05/20 15:42 08/06/20 00:17 Lorazepam 0.5 Mg Tablet PO 0.5 mg DAILY PRN Administration Anxiety Losartan Potassium 100 mg 08/06/20 09:00 08/07/20 09:14 Losartan Potassium 50 Mg Tablet PO 100 mg DAILY COLE Administration Protocol Magnesium Hydroxide 30 ml 08/05/20 15:42 Milk Of Magnesia 30 Ml Oral.Susp PO DAILY PRN Constipation Naloxone HCl 0.2 mg 08/05/20 15:42 Naloxone Hcl 0.4 Mg/Ml Vial IVPUSH Q2M PRN Excessive sedation or RR < 8 Ondansetron HCl 4 mg 08/05/20 15:42 Ondansetron Hcl 4 Mg/2 Ml Vial IVPUSH Q8H PRN Nausea and Vomiting Oxycodone HCl 5 mg 08/05/20 15:42 08/06/20 13:32 Oxycodone Hcl Immed Release 5 Mg Tablet PO 5 mg Q4H PRN Administration Pain, Moderate (Pain Scale 4-6 Oxycodone HCl 10 mg 08/05/20 21:00 08/07/20 09:14 Oxycodone Hcl Er 10 Mg Tab.Er.12h PO 10 mg BID COLE Administration Senna 17.2 mg 08/05/20 15:42 Sennosides 8.6 Mg Tablet PO BEDTIME PRN Constipation Sodium Chloride 3 ml 08/05/20 16:00 08/07/20 09:13 0.9 % Sodium Chloride Flush 3 Ml Syringe IVFLUSH 3 ml QSHIFT COLE Administration Labs CBC & Chem 7: 08/07/20 07:53 08/07/20 07:53 Assessment and Plan (1) HTN (hypertension): Status: Acute (2) Depression: Problem details: Sees therapist and psychiatrist at [facility] Status: Acute Assessment and Plan: 60/F with HNT, depression, anxiety who had hip replacement 08/05 d/t Avascular Necrosis Plan: Avascular Necrosis s/p hip replacment. management by ortho, PT HTN-BP is normal. Continue Norvasc, Losartan, and HCTZ Anxiety Ativan, Atarax Anemia--stable medically ok to discharge
--- NOTE | 2020-08-07 11:27 | MHC.CM.PN ---
PT DISCHARGING HOME TODAY W/[facility] FOR [facility] AND HOME PT, DAUGHTER TO TRANSPORT.
== END 2020-08-07 11:20 | disposition home health service (06) | DRG 470 ==
LOC: HO.SSSA 08:55 → HO.S3 13:38
PROVIDERS: Physician Assistant; Admitting Provider Orthopaedic Surgery; PCP Internal Medicine; Visit Provider Orthopaedic Surgery
PROC: 0SR90JA Replacement of Right Hip Joint with Synthetic Substitute, Uncemented, Open Approach (ICD-10-PCS; CPT 27130; principal; 2020-08-05 09:40)
DX: M87.9 Osteonecrosis, unspecified (principal); F33.1 Major depressive disorder, recurrent, moderate; D64.9 Anemia, unspecified; I10 Essential (primary) hypertension; F41.9 Anxiety disorder, unspecified; Z20.822 Contact with and (suspected) exposure to COVID-19; Z79.899 Other long term (current) drug therapy
CPT/HCPCS: 36415; 72170; 80048; 85014; 85018; 85025; 86850; 86900; 87635; 87640; 87641; 88304; 88307; 88311; 93005; 97110; 97116; 97161; 97165; 97530; C1776; J0131; J0690; J1170; J1885; J2250; J2405; J3010

== ENCOUNTER → 2020-08-21 14:11 | Outpatient (BNVA) | payer OTHER, SELFPAY | PROVIDERS: PCP Internal Medicine; Visit Provider Physician Assistant | DX: Z47.1 Aftercare following joint replacement surgery (principal); Z96.641 Presence of right artificial hip joint | CPT/HCPCS: 99212 ==

== ENCOUNTER 2020-09-03 10:00 | Outpatient (RCR) | payer OTHER, SELFPAY ==
--- NOTE | 2020-08-22 16:00 | MHC.PT.EP ---
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 IN [facility] X 2 DAYS THEN HOME PT UNTIL RECENTLY, NOW REFERRED FOR OUTPt PT. PRESENTS WITH ANTALGIC GT WITH ST CANE, PAIN R HIP WITH SWELLING NOTED. SHOULD BENEFIT FROM PT TO HELP INCREASE OVERALL FUNCTIONAL MOBILITY Frequency and Duration: The patient will be seen 2X/WK X 8 WKS Short Term Goals: 1. I HEP WITH DC EX PROG 2. IMPROVED GT WITH LRAD/NO AD 3. LESS SWELLING REPORTED R HIP Motor Vehicle Field Representative Goals: 1. DECREASED R HIP PAIN AT LEAST 50% WITH ADLS 2. INCREASED R HIP STRENGTH AT LEAST 1/2 MM GRADE 3. IMPROVED LEFI Treatment Plan: Modalities to reduce pain, spasms and effusion. Manual therapy to restore motion and function. Therapeutic exercise to improve strength and flexibility. Neuromuscular re-education for posture and balance. Therapeutic activities to return to functional activities of daily living. Electronically signed by: KLAUDIA RUDOLPH PT Please sign and return to therapist. Thank you for your referral.
--- NOTE | 2020-11-22 14:26 | MHC.PT.DC ---
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 ? d/c of cane. Brief gt training pt noted to have better gt quality with use of st cane at this time. Practice gt next session. Pt THEN CANCELLED HER NEXT 4 PT SESSIONS AND THEN DC SELF ON 09/24/20 (?) Pt SAW DR TSE ON 09/18/20 WITH PLAN FROM HIS NOTE: Status post right hip replacement doing well. Continue physical therapy and wean cane. Will see me in 3 months. Reviewed antibiotic prophylaxis and posterior hip precautions. Electronically signed by: KLAUDIA RUDOLPH PT Please sign and return to therapist. Thank you for your referral.
--- NOTE | 2020-11-22 14:28 | MHC.PT.DC ---
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 ? d/c of cane. Brief gt training pt noted to have better gt quality with use of st cane at this time. Practice gt next session. Pt THEN CANCELLED HER NEXT 4 PT SESSIONS AND THEN DC SELF ON 09/24/20 (?) Pt SAW DR TSE ON 09/18/20 WITH PLAN FROM HIS NOTE: Status post right hip replacement doing well. Continue physical therapy and wean cane. Will see me in 3 months. Reviewed antibiotic prophylaxis and posterior hip precautions. Electronically signed by: KLAUDIA RUDOLPH PT Please sign and return to therapist. Thank you for your referral.
== END 2020-11-22 14:26 | disposition home or self-care (01) ==
LOC: HO.PT 10:00
PROVIDERS: PCP Internal Medicine; Visit Provider Orthopaedic Surgery
DX: Z96.641 Presence of right artificial hip joint (principal)
CPT/HCPCS: 97110; 97140; 97161; 97530; 97535

== ENCOUNTER 2020-09-18 10:28 | Outpatient (REF) | payer OTHER, SELFPAY ==
--- NOTE | ~2020-09-18 | XR_ITS ---
EXAMINATION: XR PELVIS XR HIP, RIGHT CLINICAL INFORMATION: Pain. COMPARISON: 08/05/2020 TECHNIQUE: AP view of the pelvis and cross-table lateral view of the right hip. FINDINGS: Status post right total hip arthroplasty with near-anatomic alignment. No displaced fracture. Pubic symphysis and sacroiliac joints are intact. The left hip is unremarkable. XR/XR hip RT 1V IMPRESSION: Satisfactory appearance of right hip total arthroplasty.
--- NOTE | ~2020-09-18 | XR_ITS ---
EXAMINATION: XR PELVIS XR HIP, RIGHT CLINICAL INFORMATION: Pain. COMPARISON: 08/05/2020 TECHNIQUE: AP view of the pelvis and cross-table lateral view of the right hip. FINDINGS: Status post right total hip arthroplasty with near-anatomic alignment. No displaced fracture. Pubic symphysis and sacroiliac joints are intact. The left hip is unremarkable. XR/XR pelvis 1-2V IMPRESSION: Satisfactory appearance of right hip total arthroplasty.
== END 2020-09-18 10:29 | disposition home or self-care (01) ==
LOC: HO.HOSX 10:28
PROVIDERS: Visit Provider Orthopaedic Surgery
DX: M25.551 Pain in right hip (principal); Z96.641 Presence of right artificial hip joint
CPT/HCPCS: 72170; 73501; 99212

== ENCOUNTER 2020-10-08 11:36 | Outpatient (REF) | payer MEDICAID, SELFPAY ==
[2020-10-08 13:49] LABS: MANUAL DIFF FLAG NO
[2020-10-08 13:52] LABS: Basophils Percent Auto 0.4 % (0-2); Eosinophils Absolute Auto 0.1 X10*3/uL (0.0-0.4); Eosinophils Percent Auto 0.8 % (0-4); Hematocrit 40.3 % (37-47); Hemoglobin 12.9 g/dl (12.0-16.0); Imm Gran Abs Auto 0.03 X10*3/uL (0.00-0.03); Imm Gran Pct Auto 0.3 % (0.0-0.4); Lymphocytes Absolute Auto 3.9 X10*3/uL (1.2-4.9); Mean Corpuscular Hemoglobin 29.1 pg (27.0-33.0); Mean Platelet Volume 10.7 fL (9.4-12.3); Monocytes Absolute Auto 0.7 X10*3/uL (0.1-1.2); Monocytes Percent Auto 6.8 % (2-11); Neutrophils Absolute Auto 5.3 X10*3/uL (2.0-8.3); Neutrophils Percent Auto 52.7 % (45-73); Platelet Count 383 X10*3/uL (160-400); Red Blood Count 4.43 X10*6/uL (4.20-5.50); Red Cell Distribution Width 13.6 % (11.0-16.0)
[2020-10-08 14:18] LABS: Alanine Aminotransferase 10 U/L (0-31); Anion Gap 12 (12-20); Aspartate Amino Transferase 17 U/L (5-31); Blood Urea Nitrogen 15 mg/dL (9-16); Calcium 10.1 mg/dL (8.4-10.2); Carbon Dioxide 31 mmol/L (22-29); Chloride 100 mmol/L (96-108); Cholesterol 240 mg/dL; Estimated Glomerular Filt Rate > 60; Glucose Fasting 94 mg/dL (60-99); HDL Cholesterol 66 mg/dL; Iron 126 mcg/dL (30-160); LDL Cholesterol Calculated 147 mg/dl; Percent Iron Saturation 35 % (15-50); Potassium 3.4 mmol/L (3.3-5.1); Sodium 140 mmol/L (135-145); Total Iron Binding Capacity 360 mcg/dL (228-428); Triglycerides 139 mg/dL; Unsaturated Iron Binding 234 ug/dL
== END 2020-10-08 11:37 | disposition home or self-care (01) ==
LOC: HO.HMGCLDS 11:36
PROVIDERS: PCP Internal Medicine; Visit Provider Internal Medicine
DX: D64.9 Anemia, unspecified (principal); E78.5 Hyperlipidemia, unspecified; I10 Essential (primary) hypertension
CPT/HCPCS: 36415; 80048; 80061; 83540; 84450; 84460; 85025

== ENCOUNTER 2020-12-11 11:40 | Outpatient (REF) | payer OTHER, SELFPAY ==
--- NOTE | ~2020-12-11 | XR_ITS ---
EXAMINATION: XR PELVIS CLINICAL INFORMATION: Pain COMPARISON: 09/18/2020 TECHNIQUE: AP view of the pelvis. FINDINGS: The bones and soft tissues are again notable for right hip arthroplasty changes. No evidence of any hardware failure. No fracture. Sacroiliac and hip joints are normal. Pubic symphysis is normal. No abnormal soft tissue calcifications. XR/XR pelvis 1-2V IMPRESSION: Satisfactory postsurgical change. No new findings.
== END 2020-12-11 11:41 | disposition home or self-care (01) ==
LOC: HO.HOSX 11:40
PROVIDERS: Visit Provider Orthopaedic Surgery
DX: T84.84XA Pain due to internal orthopedic prosthetic devices, implants and grafts, initial encounter (principal); Z96.641 Presence of right artificial hip joint
CPT/HCPCS: 72170; 99212